=== PATIENT | male | born 1970 | race Caucasian/White ===

== ENCOUNTER → 2020-01-11 | Outpatient (CLI) | payer BC ==
[2020-01-11 09:18] LABS: Basophils # (A) 0.1 k/uL (0-0.2); Basophils % (A) 1 %; Eosinophils # (A) 0.4 k/uL (0-0.7); Eosinophils % (A) 8 %; HCT 45.9 % (39.0-53.0); Lymphocytes # (A) 1.6 k/uL (1.0-4.8); Lymphocytes % (A) 33 %; MCH 30.7 pg (25.0-35.0); MCHC 32.8 g/dL (31.0-37.0); MCV 93.6 fL (80.0-100.0); Mean Platelet Volume 7.2; Monocytes # (A) 0.4 k/uL (0-1.0); Monocytes % (A) 7 %; Neutrophils # (A) 2.4 k/uL (1.3-7.7); Neutrophils % (A) 47 %; Platelet Count 244 k/uL (150-450); RDW 12.7 % (11.5-15.5)
[2020-01-11 16:40] LABS: African American GFR (CKD) 81.2 (60.0-200.0); Albumin 4.6 g/dL (3.80-4.90); Anion Gap 7.2 mmol/L (4.00-12.00); Calcium 9.8 mg/dL (8.7-10.3); Carbon Dioxide 27.8 mmol/L (21.6-31.8); Chol/HDL Ratio 4.36; Globulin 2.3 g/dL (1.6-3.3); LDL Cholesterol,Calculated 73.6 mg/dL (0.0-131.0); Non-African American GFR(CKD) 70.1 (60.0-200.0); Potassium 4.8 mmol/L (3.5-5.5); Total Bilirubin 0.6 mg/dL (0.2-1.2); Total Protein 6.9 g/dL (6.2-8.2); VLDL Calculation 77.4 mg/dL (5.00-40.00)
[2020-01-11 16:48] LABS: PSA Annual Screen 0.6 ng/mL (0.0-4.0)
== END | disposition home or self-care (01) ==
LOC: LABWHC1 08:31
PROVIDERS: ATTEND Nurse Practitioner Family
DX: E78.5 Hyperlipidemia, unspecified (principal); E87.8 Other disorders of electrolyte and fluid balance, not elsewhere classified; R53.83 Other fatigue; Z12.5 Encounter for screening for malignant neoplasm of prostate
CPT/HCPCS: 80061; 80053; 84443; 85025; 82306; 36415; G0103

== ENCOUNTER → 2020-05-01 | Day surgery (SDC) | payer BC ==
[~2020-05-01] MED LIST: LIDOCAINE 1% (10MG/ML) FOR IV START INTRADERMA PRN; PROPOFOL 10 MG/ML 20 ML VIAL IV ONE
[2020-05-01 08:36] VITALS: TEMP 97.1
[2020-05-01] MEDS: LACTATED RINGERS 1,000 ML IV SCH ×2 (08:42→08:49)
--- NOTE | 2020-05-01 09:01 | P.GSHP ---
History of Present Illness H&P Date: 05/01/20 Chief Complaint: Colon cancer screening Patient here today for colonoscopy. He has not had 1 previously. No bowel complaints. No family history of colon cancer. Past Medical History Past Medical History: No Reported History History of Any Multi-Drug Resistant Organisms: None Reported Past Surgical History: No Surgical Hx Reported Past Anesthesia/Blood Transfusion Reactions: No Reported Reaction Additional Past Anesthesia/Blood Transfusion Reaction / Comment(s): NEVER HAS HAD ANESTHESIA Past Psychological History: No Psychological Hx Reported Smoking Status: Never smoker Past Alcohol Use History: Occasional Past Drug Use History: None Reported Medications and Allergies Home Medications Medication Instructions Recorded Confirmed Type Acetaminophen Tab [Tylenol] 325 - 650 mg PO Q6H PRN 04/26/20 05/01/20 History Ibuprofen [Motrin Ib] 200 - 400 mg PO Q6H PRN 04/26/20 05/01/20 History Allergies Allergy/AdvReac Type Severity Reaction Status Date / Time No Known Allergies Allergy Verified 05/01/20 08:34 Surgical - Exam Vital Signs Temp Pulse Resp BP Pulse Ox 97.1 F L 66 18 156/74 98 05/01/20 08:35 05/01/20 08:35 05/01/20 08:35 05/01/20 08:35 05/01/20 08:35 Physical exam: General: Well-developed, well-nourished HEENT: Normocephalic, sclerae nonicteric Abdomen: Nontender, nondistended Extremities: No edema Neuro: Alert and oriented Assessment and Plan (1) Colon cancer screening Narrative/Plan: Will proceed with colonoscopy Current Visit: Yes Status: Acute Code(s): Z12.11 - ENCOUNTER FOR SCREENING FOR MALIGNANT NEOPLASM OF COLON SNOMED Code(s): 506161122
[2020-05-01 09:34] VITALS: PULSE 89; RESP 16
[2020-05-01 09:49] VITALS: BP 122/71
--- NOTE | 2020-05-03 15:55 | P.PCN ---
Date of Procedure: 05/03/20 Procedure(s) Performed: PREOPERATIVE DIAGNOSIS: Colon cancer screening POSTOPERATIVE DIAGNOSIS: Multiple polypoid lesions involving the cecum and ascending colon and proximal transverse colon, mild colitis at cecum PROCEDURE: Colonoscopy with biopsy ANESTHESIA: MAC SURGEON: Jonathan Ruiz M.D. SPECIMENS: Cecum, right-sided polyps ENDOSCOPIC PROCEDURE: The patient was placed on the endoscopy table in the left decubitus position. The Olympus colonoscope was inserted into the anus and passed under direct visualization to the base of the cecum. The appendiceal orifice was visualized. From that point the scope was slowly withdrawn inspecting all surfaces carefully. The patient had multiple polypoid lesions involving the cecum and ascending colon and proximal transverse colon. In some areas the nodularity was almost carpet-like. The nodules at times appeared fluid-filled and thin-walled. In the cecum at the valve itself there was a small 1.5-2 cm focus of mucosal erythema. This was labeled colitis. This was the only area where inflammatory changes were appreciated. A biopsy that area t ook place. Once the biopsy was taken using the cold biopsy forceps there almost appeared to be a small pocket underneath the mucosa in that location. Biopsies were then taken of nodules in the ascending colon hepatic flexure region and transverse colon. These were sent to pathology together. One of the nodules one biopsied again revealed a empty cavity behind it. No definite mucous was seen emanating from these biopsy sites. The mucosa between the nodules appeared normal. The remainder of the transverse descending sigmoid and rectum was normal. There was no visible diverticulosis. Digital rectal examination was normal. The patient was taken to the recovery room in stable condition per anesthesia guidelines. RECOMMENDATIONS: Await biopsy results. Pathologic findings will be discussed with the patient postoperatively. Further recommendations will follow.
== END ==
LOC: ORWHC2ENDO 08:09
PROVIDERS: ATTEND Surgery
DX: Z12.11 Encounter for screening for malignant neoplasm of colon (principal); K63.5 Polyp of colon; K52.9 Noninfective gastroenteritis and colitis, unspecified
CPT/HCPCS: 88305; 45380; J2704

== ENCOUNTER → 2020-05-14 | Outpatient (CLI) | payer BC ==
--- NOTE | 2020-05-14 21:39 | CT ---
EXAMINATION TYPE: CT abdomen pelvis w con DATE OF EXAM: 05/14/2020 COMPARISON: None. HISTORY: Colon lesion found on routine colonoscopy. Abnormal colonoscopy. CT DLP: 1715.6 mGycm, Automated Exposure Control for Dose Reduction was Utilized. CONTRAST: CT scan of the abdomen and pelvis is performed with oral and with IV Contrast, patient injected with 100ml mL of Isovue 300. FINDINGS: LUNG BASES: Mild cardiomegaly. LIVER/GB: Visualized liver is low dense relative to spleen consistent with diffuse fatty infiltration . PANCREAS: No significant abnormality is seen. SPLEEN: No significant abnormality is seen. ADRENALS: No significant abnormality is seen. KIDNEYS: Symmetric cortical medullary uptake and excretion without concerning renal mass or hydroneph rosis seen bilaterally. BOWEL: Oral contrast only reaches level of proximal transverse colon making evaluation of distal jeromy l slightly suboptimal. No suspicious small or large bowel dilatation. Normal-appearing appendix seen from cecum in the right lower quadrant. Scattered diverticula in the left and sigmoid colon. No CT ev idence for acute diverticulitis. PROSTATE/SEMINAL VESICLES: Prostate gland upper limits of normal with left-sided pelvic phleboliths.. LYMPH NODES: No greater than 1cm abdominal or pelvic lymph nodes are appreciated. OSSEOUS STRUCTURES: [id number] disc space narrowing with vacuum disc phenomenon lumbosacral j unction. Facet arthropathy in the mid to lower lumbar spine. OTHER: No significant additional abnormality is seen. IMPRESSION: Primary colonic mass or possible neoplasm not well visualized. No suspicious mass or luca opathy to suggest metastatic disease.
== END | disposition home or self-care (01) ==
LOC: RADCTMAIN 17:18
PROVIDERS: ATTEND Surgery
DX: K63.9 Disease of intestine, unspecified (principal)
CPT/HCPCS: 74177; Q9967

== ENCOUNTER → 2022-01-22 | Outpatient (CLI) | payer BC ==
--- NOTE | 2022-01-22 17:19 | P.SLEEP ---
History of Present Illness DATE: 01/22/2022 CONSULTATION/NEW PATIENT EVALUATION HISTORY OF PRESENT ILLNESS/SLEEP-WAKE EVALUATION: 51 year old gentleman had been evaluated in the sleep center for possible obstructive sleep apnea hypopnea syndrome. SLEEP SCHEDULE: Usually sleep schedule on weekdays from 10 PM to 6 AM, during days off from 11 PM to 7 AM. FALLING ASLEEP: No problems with falling asleep, although patient has TV set and bedroom. DURING SLEEP: Patient usually sleeps on the back position, with loud snoring and multiple awakenings from sleep. Nocturia up to 3 times per night. Some discomfort in legs during the sleep. No history of hypnogogical hallucinations, sleep paralysis, or cataplexy. DURING THE DAY/WAKE STATE: Patient may feel some sleepiness during the day especially after known. [place] sleepiness scale is 9. Patient may take 1 nap between 1 and 3 PM. PAST MEDICAL HISTORY: Sexual dysfunction. PAST SURGICAL HISTORY: Colonoscopy. MEDICATIONS: Sildenafil occasionally. SOCIAL HISTORY: Negative for smoking, alcohol consumption occasional. FAMILY HISTORY: Heart problems, cancer, diabetes. REVIEW OF SYSTEMS: Loud snoring, multiple awakenings from sleep. No fevers. No double vision. No recent chest pain. No shortness of breath. No abdominal pain. No bleeding episodes. No blood in urine. No seizure episodes. PHYSICAL EXAMINATION: GENERAL: A pleasant patient without any distress. VITAL SIGNS: BP 113/75, HR 60, RR 16, weight 240 pounds, height 5 foot 9.5 inches, body mass index 34.9. HEENT: PERRLA, EOMI. Evaluation of oropharynx showed tongue protrudes midline, low position of soft palate Mallampati 4. NECK: Supple. No JVD. Thyroid is not palpable. 18 inches in circumference. LUNGS: Clear to percussion and to auscultation. Good air exchange. No wheezing or rhonchi. HEART: S1, S2 regular. No murmurs, gallops or rubs. ABDOMEN: Soft and nontender. Bowel sounds are present. No organomegaly appreciated. EXTREMITIES: No clubbing or cyanosis. CLINICAL SAFETY SPECIALIST: Awake, alert, and oriented x3. Cranial nerves 2 to 7 intact. There is no fasciculation or atrophy noted. No focal deficits observed. ASSESSMENT: 1. Loud snoring, multiple awakenings from sleep, extremely low position of soft palate Mallampati 4, wide neck 18 inches in circumference. Obstructive sleep apnea hypopnea syndrome. 2. Mild obesity body mass is 34.9. 3 history of some sexual dysfunction. PLAN: 1. Home sleep apnea test for evaluation of patient's breathing during sleep. 2. CPAP/BiPAP titration if sleep study confirms obstructive sleep apnea- hypopnea syndrome. 3. Preferable position during sleep on the side. 4. No driving if patient feels any sleepiness. Patient is aware of civil and criminal liability for unsafe driving. 5. Sleep hygiene with regular sleep time for at least 7.5-8 hours. 6. Watching weight. Thank you very much for referring this patient for consultation. Sincerely, Charles Jeffers MD, PhD, FAASM. Diplomat of [place] [employer], Sleep Medicine Board by [place] [employer] [employer] [facility] [place] Past Medical History Past Medical History: No Reported History History of Any Multi-Drug Resistant Organisms: None Reported Past Surgical History: No Surgical Hx Reported Past Anesthesia/Blood Transfusion Reactions: No Reported Reaction Additional Past Anesthesia/Blood Transfusion Reaction / Comment(s): NEVER HAS HAD ANESTHESIA Past Psychological History: No Psychological Hx Reported Smoking Status: Never smoker Past Alcohol Use History: Occasional Past Drug Use History: None Reported Medications and Allergies Home Medications Medication Instructions Recorded Confirmed Type Acetaminophen Tab [Tylenol] 325 - 650 mg PO Q6H PRN 04/26/20 05/01/20 History Ibuprofen [Motrin Ib] 200 - 400 mg PO Q6H PRN 04/26/20 05/01/20 History Allergies Allergy/AdvReac Type Severity Reaction Status Date / Time No Known Allergies Allergy Verified 05/01/20 08:34 Sleep Note - Sleep Note Sleep Note: Temperature: Pulse Rate: Respiratory Rate: Blood Pressure: SpO2: Height: Weight: BMI: Neck Circumference:
== END ==
LOC: SLEEP 15:27
PROVIDERS: ATTEND Internal Medicine
DX: G47.33 Obstructive sleep apnea (adult) (pediatric) (principal); E66.9 Obesity, unspecified; Z68.34 Body mass index [BMI] 34.0-34.9, adult
CPT/HCPCS: 99211

== ENCOUNTER 2023-08-04 09:33 | Day surgery (SDC) | payer BC ==
[2023-08-04] MEDS: LACTATED RINGERS 1,000 ML IV SCH (09:50)
[2023-08-04] MEDS ORDERED: PROPOFOL 10 MG/ML 20 ML VIAL IV ONE (10:09)
[2023-08-04 10:11] VITALS: TEMP 97.6
--- NOTE | 2023-08-04 10:14 | P.GSHP ---
History of Present Illness H&P Date: 08/04/23 Chief Complaint: Colon cancer screening 52-year-old male here today for colonoscopy. Last colonoscopy 3 to 4 years ago. Patient had colitis with atypical cystic mucosal lesions. No bowel complaints. No family history of colon cancer. Past Medical History Past Medical History: Hyperlipidemia Additional Past Medical History / Comment(s): "unusual" colonoscopy so pt. is having another History of Any Multi-Drug Resistant Organisms: None Reported Past Surgical History: No Surgical Hx Reported Additional Past Surgical History / Comment(s): colonoscopy Past Anesthesia/Blood Transfusion Reactions: No Reported Reaction Additional Past Anesthesia/Blood Transfusion Reaction / Comment(s): no problems w/ previous colonoscopy Smoking Status: Never smoker Medications and Allergies Home Medications Medication Instructions Recorded Confirmed Type Acetaminophen Tab [Tylenol] 325 - 650 mg PO Q6H PRN 04/26/20 07/31/23 History Fenofibrate 1 tab PO DAILY 07/31/23 07/31/23 History Allergies Allergy/AdvReac Type Severity Reaction Status Date / Time No Known Allergies Allergy Verified 08/04/23 09:49 Surgical - Exam Vital Signs Temp Pulse Resp BP Pulse Ox 97.6 F 63 20 157/95 96 08/04/23 09:57 08/04/23 09:57 08/04/23 09:57 08/04/23 09:57 08/04/23 09:57 Physical exam: General: Well-developed, well-nourished HEENT: Normocephalic, sclerae nonicteric Abdomen: Nontender, nondistended Extremities: No edema Neuro: Alert and oriented Assessment and Plan (1) Colon cancer screening Narrative/Plan: Will proceed with colonoscopy at this time Current Visit: No Status: Acute Code(s): Z12.11 - ENCOUNTER FOR SCREENING FOR MALIGNANT NEOPLASM OF COLON SNOMED Code(s): 190366557
--- NOTE | 2023-08-04 10:31 | P.PCN ---
Date of Procedure: 08/04/23 Procedure(s) Performed: PREOPERATIVE DIAGNOSIS: Screening with history of colitis POSTOPERATIVE DIAGNOSIS: Ascending colon polyp, mucosal cysts right side of colon PROCEDURE: Colonoscopy with snare polypectomy ANESTHESIA: MAC SURGEON: Jonathan Ruiz M.D. SPECIMENS: Ascending colon polyp ENDOSCOPIC PROCEDURE: The patient was placed on the endoscopy table in the left decubitus position. The Olympus colonoscope was inserted into the anus and passed under direct visualization to the base of the cecum. The appendiceal orifice was visualized. From that point the scope was slowly withdrawn inspecting all surfaces carefully. There were no neoplastic inflammatory or polypoid lesions throughout the cecum. In the ascending colon there was a sessile polyp that was removed using a snare with cautery technique. The patient had numerous nodular and cystic appearing lesions involving the cecum ascending and proximal transverse colon. In many of the cysts you could see mucus behind the thin mucosa. These were were biopsied previously and benign. Given the very thin wall no biopsies of those areas to place at this time to avoid risk for iatrogenic injury. No neoplastic changes were noted. The remainder of the transverse descending sigmoid and rectum appeared normal. There was no visible diverticulosis. Digital rectal examination was normal. The patient was taken to the recovery room in stable condition per anesthesia guidelines. RECOMMENDATIONS: Await biopsy results. Repeat colonoscopy 3 to 5 years.
[2023-08-04 10:47] VITALS: RESP 16
[2023-08-04 11:22] VITALS: BP 128/86; PULSE 65
== END 2023-08-04 11:20 | disposition home or self-care (01) ==
LOC: ORWHC2ENDO 09:33
PROVIDERS: ATTEND Surgery
DX: D12.2 Benign neoplasm of ascending colon (principal); K63.89 Other specified diseases of intestine; E78.5 Hyperlipidemia, unspecified; K21.9 Gastro-esophageal reflux disease without esophagitis; Z79.899 Other long term (current) drug therapy
CPT/HCPCS: 88305; 45385; J2704

== ENCOUNTER 2023-11-15 15:02 | Emergency (ER) | payer BC ==
[2023-11-15 15:10] VITALS: RESP 18; TEMP 98.7
--- NOTE | 2023-11-15 15:25 | ED ---
Skin/Abscess/FB HPI - General Chief complaint: Skin/Abscess/Foreign Body Stated complaint: infection in r leg Time Seen by Provider: 11/15/23 15:24 Source: patient, RN notes reviewed Mode of arrival: ambulatory Limitations: no limitations - History of Present Illness Initial comments: 53-year-old male presented to ER with a chief complaint of right calf infection. Patient states on he was doing yard work and excellently it was punctured by a branch. He states the branch was through his lateral calf. He was able to remove it by pushing it through his skin and pulling it out the other side. He was seen by urgent care yesterday and prescribed Bactrim and Keflex for cellulitis. X-rays obtained at that time were negative for foreign bodies. Patient states this afternoon he noticed increased swelling in his right foot. He does state that erythema has decreased as he susan a line with a sharpie on his calf. Denies any fevers or chills. He is only taken 1 dose of antibiotics at this time. He does believe he received IM Rocephin by urgent care yesterday. No other complaints. - Related Data Home Medications Medication Instructions Recorded Confirmed Acetaminophen Tab [Tylenol] 325 - 650 mg PO Q6H PRN 04/26/20 07/31/23 Fenofibrate 1 tab PO DAILY 07/31/23 07/31/23 Allergies Allergy/AdvReac Type Severity Reaction Status Date / Time No Known Allergies Allergy Verified 11/15/23 15:10 Review of Systems ROS Statement: Those systems with pertinent positive or pertinent negative responses have been documented in the HPI. ROS Other: All systems not noted in ROS Statement are negative. Past Medical History Past Medical History: Hyperlipidemia Additional Past Medical History / Comment(s): "unusual" colonoscopy so pt. is having another History of Any Multi-Drug Resistant Organisms: None Reported Past Surgical History: No Surgical Hx Reported Additional Past Surgical History / Comment(s): colonoscopy Past Anesthesia/Blood Transfusion Reactions: No Reported Reaction Additional Past Anesthesia/Blood Transfusion Reaction / Comment(s): no problems w/ previous colonoscopy Past Psychological History: No Psychological Hx Reported Smoking Status: Never smoker Past Alcohol Use History: Occasional Past Drug Use History: None Reported General Exam Limitations: no limitations General appearance: alert, in no apparent distress Respiratory exam: Present: normal lung sounds bilaterally. Absent: respiratory distress, wheezes, rales, rhonchi, stridor Cardiovascular Exam: Present: regular rate, normal rhythm, normal heart sounds. Absent: systolic murmur, diastolic murmur, rubs, gallop, clicks Extremities exam: Present: normal inspection, full ROM, normal capillary refill, other (To function to right lateral calf. No purulent drainage. Mild surrounding erythema and warmth. Nonpitting edema to right foot. Distal pulses intact). Absent: tenderness, pedal edema, joint swelling, calf tenderness Skin exam: Present: warm, dry, intact, normal color. Absent: rash Course Vital Signs 11/15/23 11/15/23 15:04 16:10 Temperature 98.7 F Pulse Rate 69 72 Respiratory 18 18 Rate Blood Pressure 158/80 135/104 O2 Sat by Pulse 95 97 Oximetry Medical Decision Making - Medical Decision Making Was pt. sent in by a medical professional or institution (MELISSA De La Cruz, COMPUTER FORWARDING SYSTEM MARKUP CLERK, urgent care, hospital, or [facility]...) When possible be specific @ -No Did you speak to anyone other than the patient for history (EMS, parent, family, police, friend...)? What history was obtained from this source @ -No Did you review nursing and triage notes (agree or disagree)? Why? @ -I reviewed and agree with nursing and triage notes Were old charts reviewed (outside hosp., previous admission, EMS record, old EKG, old radiological studies, urgent care reports/EKG's, [facility] records)? Report findings @ -No old charts were reviewed Differential Diagnosis (chest pain, altered mental status, abdominal pain women, abdominal pain men, vaginal bleeding, weakness, fever, dyspnea, syncope, headache, dizziness, GI bleed, back pain, seizure, CVA, palpatations, mental health, musculoskeletal)? @ -Cellulitis, foreign body, fracture,... this list is not meant to be all- inclusive EKG interpreted by me (3pts min.). @ -None X-rays interpreted by me (1pt min.). @ -None done CT interpreted by me (1pt min.). @ -None done U/S interpreted by me (1pt. min.). @ -None done What testing was considered but not performed or refused? (CT, X-rays, U/S, labs)? Why? @ -None What meds were considered but not given or refused? Why? @ -None Did you discuss the management of the patient with other professionals (professionals i.e. DrLay, PA, COMPUTER FORWARDING SYSTEM MARKUP CLERK, lab, RT, psych nurse, manager social work, photographic artist, teacher, structural engineering drafting officer, family caseworker)? Give summary @ -No Was smoking cessation discussed for >3mins.? @ -No Was critical care preformed (if so, how long)? @ -No Were there social determinants of health that impacted care today? How? (Homelessness, low income, unemployed, alcoholism, drug addiction, transportation, low edu. Level, literacy, decrease access to med. care, half-way, rehab)? @ -No Was there de-escalation of care discussed even if they declined (Discuss DNR or withdrawal of care, Hospice)? DNR status @ -No What co-morbidities impacted this encounter? (DM, HTN, Smoking, COPD, CAD, Cancer, CVA, ARF, Chemo, Hep., AIDS, mental health diagnosis, sleep apnea, morbid obesity)? @ -None Was patient admitted / discharged? Hospital course, mention meds given and route, prescriptions, significant lab abnormalities, going to OR and other pertinent info. @ -Discharge. 53-year-old male presented to the ER with a chief complaint of right calf injury. Patient seen yesterday by urgent care for evaluation of puncture wound from stick and started on Keflex and Bactrim. Patient does report he received IM Rocephin at that time by urgent care. Patient presents today for right foot edema. Vitals stable. Exam significant for nonpitting edema to the right foot. Right lower extremity neurovascular intact. There is 2 puncture wounds to lateral calf. No calf tenderness. No purulent drainage present. Mild surrounding erythema. No foreign body present. Tetanus updated. At this time patient is stable for discharge as he is reporting decrease in erythema compared to yesterday as he marked it on his calf. Since he only has had 1 dose of antibiotics continued outpatient therapy appropriate. Strict return parameters discussed. I advised continued use of Keflex and Bactrim. I advised elevation and compression for edema. Patient discharged in stable condition with follow-up to PCP. Patient verbally expressed understanding and agreement with care plan. Case discussed with ED attending, Dr. Mayer. Undiagnosed new problem with uncertain prognosis? @ -No Drug Therapy requiring intensive monitoring for toxicity (Heparin, Nitro, Insulin, Cardizem)? @ -No Were any procedures done? @ -No Diagnosis/symptom? @ -Cellulitis Acute, or Chronic, or Acute on Chronic? @ -Acute Uncomplicated (without systemic symptoms) or Complicated (systemic symptoms)? @ -Uncomplicated Side effects of treatment? @ -No Exacerbation, Progression, or Severe Exacerbation? @ -No Poses a threat to life or bodily function? How? (Chest pain, [place], MS, pneumonia, PE, COPD, DKA, ARF, appy, cholecystitis, CVA, Diverticulitis, Homicidal, Suicidal, threat to staff... and all critical care pts) @ -Low likelihood Disposition Clinical Impression: Cellulitis Disposition: HOME SELF-CARE Condition: Stable Instructions (If sedation given, give patient instructions): Cellulitis (ED) Additional Instructions: Continue taking Bactrim and Keflex as prescribed. Have a low threshold to return in the ER for increasing redness, purulent drainage or increase in swelling. I recommend elevation and compression. Return to the ER for any new or worsening concerns. Is patient prescribed a controlled substance at d/c from ED?: No Referrals: Artie Mcconnell DO [Primary Care Provider] - 1-2 days Time of Disposition: 15:53
[2023-11-15] MEDS: DIPH,PERTUS(ACELL)TETVAC-LF 0.5 ML VIAL IM ONE (16:02)
[2023-11-15 16:11] VITALS: BP 135/104; PULSE 72
== END 2023-11-15 16:12 | disposition home or self-care (01) ==
LOC: EC 15:02
DX: L03.115 Cellulitis of right lower limb (principal); Z23 Encounter for immunization
CPT/HCPCS: 90471; 90715; 99282